=== PATIENT | male | born 1965 | race Caucasian/White ===

== ENCOUNTER 2016-11-12 19:25 | Emergency (ER) | payer BC ==
[~2016-11-12] VITALS: Ht 180.3 cm; Wt 81.6 kg
--- NOTE | ~2016-11-12 | CR63 ---
[facility] A Service of [facility] RADIOLOGY TEXT RESULTS PATIENT: TARA SAAB LOCATION: SED : 67 UNIT #: [id number] AGE: [address]: Viri Lyles MD SEX: M ORDER DR: [id number] [id number] E MR#: [id number] Acc #: [id number] NAME: TARA SAAB. : 1965 SEX: M STUDY DATE/TIME: 11/12/2016 20:22 UNIT: SED ROOM: STUDY DESCRIPTION: CR Chest 2 View Attending Physician: Viri Lyles M.D. Ordering Physician: Viri Lyles M.D. MEDICAL IMAGING REPORT This report is preliminary unless electronic signature is present. EXAMINATION PA and lateral chest. DATE 11/12/2016 HISTORY 51-year-old male with cough, congestion, chest and upper back pain, fever and sore throat since yesterday. COMPARISON None. FINDINGS Peribronchiolar reticular interstitial changes are present centrally in both lungs, greatest in bilateral lower lobes. No consolidation. No pleural effusion or pneumothorax. Heart size within normal limits. IMPRESSION Suspected faint reticular peribronchiolar infiltrates within both lungs, greatest in bibasilar distribution. No dense lung consolidations. Correlate for bronchitis. Dictated by... Ilda Roa M.D. THIS IS AN ELECTRONICALLY VERIFIED REPORT Ilda Roa M.D. at 11/13/2016 1:55 PM [facility]/jyoti TD: 11/13/2016 10:57 JOB #: [id number] [facility] A Service [facility] RADIOLOGY TEXT RESULTS PATIENT: TARA SAAB LOCATION: SED : 67 UNIT #: [id number] AGE: [address]: Viri Lyles MD SEX: M ORDER DR: MEDICAL IMAGING REPORT Page 1 of 1
[2016-11-12 20:50] LABS: URINE SOURCE CLEAN CATCH
[2016-11-12 20:52] LABS: URINE APPEARANCE CLEAR; URINE BILIRUBIN NEG (NEG); URINE BLOOD NEG (NEG); URINE COLOR YELLOW; URINE KETONE NEG (NEG); URINE LEUKOCYTE ESTERASE NEG (NEG); URINE NITRATE NEG (NEG); URINE PROTEIN NEG (NEG); URINE SPECIFIC GRAVITY 1.025 (1.003-1.035); URINE UROBILINOGEN 0.2 MG/DL (NORM)
[2016-11-12 20:53] LABS: MICRO INDICATED? NO; URINE GLUCOSE NEG (NORM)
== END 2016-11-12 21:48 | disposition home or self-care (01) ==
LOC: SED 19:25
PROVIDERS: Emergency Medicine
DX: J18.9 Pneumonia, unspecified organism (principal); F17.200 Nicotine dependence, unspecified, uncomplicated
CPT/HCPCS: 71020; 81003; 96361; 96365; 96375; 99283; J0696; J1885